=== PATIENT | male | born 1985 | race African-American/Black ===

== ENCOUNTER 2022-01-15 10:06 | Emergency (ER) | payer OTHER ==
[~2022-01-15] VITALS: Ht 195.6 cm; Wt 90.9 kg
[2022-01-15] MEDS ORDERED: ALBU8HFA IH (10:12)
[2022-01-15] MEDS ORDERED: CALC500T37 PO (10:12)
[2022-01-15 11:48] VITALS: BP 136/89
[2022-01-15 11:55] LABS: COVID AG,FIA SOURCE NASAL SWAB
[2022-01-15] MEDS ORDERED: ACETAMINOPHEN 500 MG TABLET PO ONE (12:00)
[2022-01-15] MEDS ORDERED: NIRM1TAB PO (12:44)
== END 2022-01-15 13:00 | disposition home or self-care (01) ==
LOC: EMS 10:06
DX: U07.1 COVID-19 (principal); F14.10 Cocaine abuse, uncomplicated; J45.901 Unspecified asthma with (acute) exacerbation; K21.9 Gastro-esophageal reflux disease without esophagitis; R51.9 Headache, unspecified
CPT/HCPCS: 99284; Z7502; Z7610

== ENCOUNTER 2022-09-11 16:24 | Emergency (ER) | payer OTHER ==
[~2022-09-11] VITALS: Ht 170.2 cm; Wt 100.9 kg
[~2022-09-11 16:24] MED LIST: ALBU18HF12 IH; CALC500T37 PO; NIRM1TAB4 PO
[2022-09-11 16:53] LABS: BASOPHILS % (AUTO) 0.8 % (0.0-2.0); HEMATOCRIT 44.2 % (41-53); HEMOGLOBIN 14.5 g/dL (13.5-17.5); LYMPHOCYTES # (AUTO) 1.2 K/uL (1.0-4.8); LYMPHOCYTES % (AUTO) 24.6 % (22.0-44.0); MEAN CORPUSCULAR HEMOGLOBIN 25.8 pg (26.0-34.0); MEAN CORPUSCULAR HGB CONC 32.7 G/dL (31.0-37.0); MEAN CORPUSCULAR VOLUME 79 fL (80-100); MONOCYTES # (AUTO) 0.5 K/uL (0.1-1.0); MONOCYTES % (AUTO) 9.6 % (2.0-9.0); PLATELET COUNT (AUTO) 221 K/uL (150-450); RED BLOOD CELL COUNT(AUTO) 5.62 MIL/uL (4.50-5.90); RED CELL DISTRIBUTION WIDTH 14.4 % (11.5-14.5)
[2022-09-11 17:27] LABS: ANION GAP 6 mmol/L (8-16); CALCIUM, TOTAL 9.3 mg/dL (8.8-10.5); CARBON DIOXIDE 32 mmol/L (22-29); CHLORIDE 101 mmol/L (98-107); CREATININE 1.13 mg/dL (0.60-1.30); GLOMERULAR FILTR. RATE CALC > 60 mL/min (>60); GLUCOSE,RANDOM 107 mg/dL (70-110); POTASSIUM 3.7 mmol/L (3.5-5.1); SODIUM SERUM 139 mmol/L (136-145); UREA NITROGEN, BLOOD 12 mg/dL (7-18)
[2022-09-11 17:30] LABS: PROTHROMBIN TIME 10.2 SEC (9.4-11.6)
[2022-09-11 17:33] LABS: ALANINE AMINOTRANSFERASE 41 U/L (12-78); ALKALINE PHOSPHATASE 53 U/L (46-116); ASPARTATE AMINOTRANSFERASE 21 U/L (15-37); TOTAL PROTEIN, SERUM 7.9 g/dL (6.4-8.2)
[2022-09-11] MEDS ORDERED: PRED-554 PO (17:43)
[2022-09-11] MEDS ORDERED: POLY15DR29 OS (17:43)
[2022-09-11] MEDS ORDERED: LANO3.5O OP (17:43)
[2022-09-11] MEDS ORDERED: VALA500T PO (17:43)
[2022-09-11 18:20] VITALS: BP 131/79
== END 2022-09-11 18:41 | disposition home or self-care (01) ==
LOC: EMS 16:34
DX: G51.0 Bell's palsy (principal); J45.909 Unspecified asthma, uncomplicated
CPT/HCPCS: 71045; 80053; 82948; 84484; 85025; 85610; 93005; 99291; 36415-L1; 36415-TC; 70450; 70450-TC